=== PATIENT | male | born 1950 | race Caucasian/White ===

== ENCOUNTER 2021-07-13 20:43 | Observation (INO) | payer OTHER, MEDICARE ==
[~2021-07-13] VITALS: Ht 188 cm; Wt 113.4 kg
[2021-07-13 22:07] LABS: BASOPHILS ABSOLUTE AUTO 0.05 K/mm3 (0.00-0.23); BASOPHILS PERCENT AUTO 0 % (0-2); EOSINOPHILS ABSOLUTE AUTO 0.17 K/mm3 (0.00-0.68); EOSINOPHILS PERCENT AUTO 1 % (0-6); Hematocrit 45.5 % (37.0-53.0); IMMATURE GRAN ABSOLUTE AUTO 0.08 K/mm3 (0.00-0.10); IMMATURE GRAN PERCENT AUTO 1 % (0-1); LYMPHOCYTES ABSOLUTE AUTO 1.36 K/mm3 (0.84-5.20); LYMPHOCYTES PERCENT AUTO 10 % (21-46); MONOCYTES ABSOLUTE AUTO 0.87 K/mm3 (0.16-1.47); MONOCYTES PERCENT AUTO 6 % (4-13); Mean Corpuscular HGB 27.9 pg (26.0-34.0); Mean Corpuscular Volume 85 fL (80-100); Mean Platelet Volume 9.2 fL (9.1-12.4); NEUTROPHILS ABSOLUTE AUTO 11.77 K/mm3 (1.96-9.15); NEUTROPHILS PERCENT AUTO 82 % (41-73); Platelet Count 268 K/mm3 (150-400); RDW Coefficient Variation 11.9 % (11.7-14.2); Red Blood Cell Count 5.37 M/mm3 (4.30-5.90)
[2021-07-13 22:13] LABS: Source, Urine Clean Catch
[2021-07-13 22:15] LABS: Bilirubin, Urine Neg (Neg); Blood, Urine 3+ (Neg); Glucose Qualitative, Urine Neg (Neg); Ketones, Urine Neg (Neg); Leukocyte Esterase, Urine 1+ (Neg); Nitrite, Urine Neg (Neg); Protein, Urine Neg (Neg); Specific Gravity, Urine 1.025 (1.003-1.022); Urobilinogen, Urine NORM (Normal)
[2021-07-13 22:22] LABS: Alanine Aminotransfer (ALT/SGP 22 U/L (12-78); Albumin, Blood 3.4 g/dL (3.4-5.0); Albumin/Globulin Ratio 0.9 (0.8-1.8); Alk Phos 76 U/L (50-136); Anion Gap 5 mmol/L (6-16); Aspartate Aminotrans (AST/SGOT 11 U/L (12-37); Bilirubin, Total 0.4 mg/dL (0.1-1.0); Blood Urea Nitrogen 24 mg/dL (8-24); Bun/Creatinine Ratio 25.8 (12.0-20.0); CO2, Blood 26 mmol/L (21-32); Calcium, Blood 8.7 mg/dL (8.5-10.1); Chloride, Blood 106 mmol/L (98-108); Creatinine, Blood 0.93 mg/dL (0.60-1.20); Globulin, Blood 3.9 g/dL (2.2-4.0); Glomerular Filtration Rate >60 (60-); Glucose, Blood 134 mg/dL (70-99); Potassium, Blood 3.6 mmol/L (3.5-5.5); Sodium, Blood 137 mmol/L (136-145); Total Protein, Blood 7.3 g/dL (6.4-8.2)
[2021-07-13 22:31] LABS: Appearance, Urine Hazy (Clear); Color, Urine Yellow (P-Yellow)
[2021-07-13 22:32] LABS: Bacteria Rare /hpf; Mucus Light (0-Heavy); Red Blood Cells, Urine 0-2 /hpf (0-2); Squamous Epithelial Cells Not Seen /hpf (Few); Uric Acid Crystals Many /hpf; White Blood Cells, Urine 0-2 /hpf (0-5)
[2021-07-13] MEDS ORDERED: TAMSULOSIN HCL0.4 M1 PO (22:56)
--- NOTE | 2021-07-14 01:56 | NUR ---
ASSUMED CARE OF PATIENT AT APPROX 0100, PT IND AND AMBULATORY, VITAL SIGNS TAKEN. ADMISSION ASSESSMENT COMPLETED. CHANGED INTO GOWN. REPORTS NO PAIN AT THIS TIME. NO N/V. WILL CONTINUE TO MONITOR.
--- NOTE | 2021-07-14 04:24 | NUR ---
SHIFT SUMMARY SINCE ASSUMING CARE PATIENT HAS NOT REPORTED ANY PAIN, NAUSEA, OR VOMITING. PT HAS REMAINED NPO. VITAL SIGNS STABLE. IND IN THE ROOM. WILL CONTINUE TO MONITOR AND REPORT TO ONCOMING RN.
[2021-07-14 06:37] LABS: Influenza A, PCR NEGATIVE (NEGATIVE); Influenza B, PCR NEGATIVE (NEGATIVE); Resp Syncytial Virus, PCR NEGATIVE (NEGATIVE); SARS-Cov-2 (COVID-19) PCR, MMC NEGATIVE (NEGATIVE)
--- NOTE | 2021-07-14 10:12 | NUR ---
PT LEFT FOR DAY SURGERY AT APPROXIMATELY 0900. PT WAS PROVIDED WITH PRE-OP CLEANSING PRODUCTS PRIOR TO SURGERY.
--- NOTE | 2021-07-14 12:33 | NUR ---
PT ARRIVED BACK TO THE ROOM AT 1221. PT ALERT AND ORIENTED. HE REPORTS HIS PAIN IS TOLERABLE AT THIS TIME. NATHALIA DRAIN IN PLACE AND DRAINING SEROSANGUINOUS FLUID, WITH SOME SCANT DRAINAGE AT INSERTION SITE. LAP SITES X3, GAUZE DRESSING C/D/I.
--- NOTE | 2021-07-14 19:15 | NUR ---
SHIFT SUMMARY PT IS POD#[address] FROM [address]Y WITH DR. STOCK. PT DENIES NEED FOR PAIN MEDICATION. NATHALIA DRAIN IN PLACE, DRAINING SEROSANGUINOUS FLUID WITH FEW CLOTS. PT IS TOLERATING CLEAR LIQUIDS AND REPORTED PASSING FLATUS THIS EVENING. PT HAS AMBULATED IN THE [facility] POST OP. PT ABLE TO VOID SINCE SURGERY. REPORT GIVEN TO ISSAC VICK.
--- NOTE | 2021-07-15 04:16 | NUR ---
SHIFT SUMMARY A/0 X4- IND IN RM. POD1 LAP YEVGENIY WITH 3 INCISION SITES WITH GAUZE AND TAPE, C/D/I. NATHALIA DRAIN TO RLQ WITH MINIMAL AMOUNT OF SS DRAINAGE, GAUZE AND TAPE DRESSING, C/D/I. TOLERATING CLEAR LIQUIDS, NO N/V. REPORTS PASSING FLATUS. VOIDING WELL. VITAL SIGNS STABLE. WILL CONTINUE TO MONITOR AND REPORT TO ONCOMING RN.
--- NOTE | 2021-07-15 08:51 | NUR ---
STRAIGHT CATH STRAIGHT CATH NEEDED TO EMPTY BLADDER OF >820ML PER BLADDER SCAN RESULT. STRAIGHT CATH EMPTIED 1100ML. PT TOLERATED WELL. DR. STOCK AWARE. FLOMAX RESTARTED.
--- NOTE | 2021-07-15 08:53 | NUR ---
DR. STOCK ROUNDED ON PT. NATHALIA DRAIN REMOVED. DRESSINGS CHANGED.
[2021-07-15 17:06] LABS: Source, Urine Foley catheter
[2021-07-15 17:17] LABS: Appearance, Urine Clear (Clear); Bilirubin, Urine Neg (Neg); Blood, Urine 3+ (Neg); Glucose Qualitative, Urine Neg (Neg); Ketones, Urine Neg (Neg); Leukocyte Esterase, Urine Neg (Neg); Nitrite, Urine Neg (Neg); Protein, Urine Neg (Neg); Urobilinogen, Urine NORM (Normal); pH, Urine 6.5 (5.0-8.0)
[2021-07-15 17:25] LABS: Color, Urine Pale Yellow (P-Yellow)
[2021-07-15 17:49] LABS: White Blood Cells, Urine Rare /hpf (0-5)
[2021-07-15 17:50] LABS: Bacteria Mod /hpf; Squamous Epithelial Cells Not Seen /hpf (Few)
--- NOTE | 2021-07-15 18:42 | NUR ---
URINARY RETENTION BLADDER SCAN SHOWED 563ML IN HIS BLADDER, PT UNABLE TO VOID. DR. STOCK NOTIFIED. RIZVI CATH PLACED PT EDUCATED TO FOLLOW-UP WITH UROLOGY IN 1 WEEK.
--- NOTE | 2021-07-15 18:52 | NUR ---
DISCHARGE PT PROVIDED WITH WRITTEN AND VERBAL DISCHARGE INSTRUCTIONS; HE AND HIS SPOUSE REPORTED UNDERSTANDING. PT EDUCATED TO USE RIZVI OVERNIGHT BAG AND LEG BAG. SUPPLIES PRVOIDED. PT AMBULATED OUT WITHOUT ASSISTANCE. NATHALIA DRAIN REMOVED BY DR. STOCK EARLIER TODAY.
--- NOTE | 2021-07-16 10:46 | NUR ---
07/16/21 1046 Alana López VERIFICATIONS: EDIT CHART.
== END 2021-07-15 18:00 | disposition home or self-care (01) ==
LOC: ER 20:43 → SURS 20:44 → ER 07-14 00:35 → SURS 07-14 00:35
PROVIDERS: Physician Assistant; ADMIT Surgery
PROC: 0FT44ZZ Resection of Gallbladder, Percutaneous Endoscopic Approach (ICD-10-PCS; principal; 2021-07-14 09:15)
PROC: BF12YZZ Fluoroscopy of Gallbladder using Other Contrast (ICD-10-PCS; principal; 2021-07-14 09:15)
DX: K80.12 Calculus of gallbladder with acute and chronic cholecystitis without obstruction (principal); K80.00 Calculus of gallbladder with acute cholecystitis without obstruction; K42.0 Umbilical hernia with obstruction, without gangrene; R33.9 Retention of urine, unspecified; Z20.822 Contact with and (suspected) exposure to COVID-19; Z88.5 Allergy status to narcotic agent; Z85.46 Personal history of malignant neoplasm of prostate
CPT/HCPCS: 0241U; 36415; 71045; 76705; 80053; 81001; 83690; 84484; 85025; 87086; 88304; 93005; 93010; 96365; 96366; 96372; 96375; 96376; 99285-25; A9270; C1894; G0378; J0295; J1100; J1650; J1885; J2405; J2704; J2710; J3010; J7030; J7050

== ENCOUNTER 2022-09-14 11:50 | Emergency (ER) | payer SELFPAY ==
[~2022-09-14] VITALS: Ht 182.9 cm; Wt 99.8 kg
[~2022-09-14 11:50] MED LIST: TAMSULOSIN HCL0.4 M1 PO
[2022-09-14 11:57] VITALS: BP 168/100
== END 2022-09-14 13:38 | disposition home or self-care (01) ==
LOC: ER 11:50
DX: S61.411A Laceration without foreign body of right hand, initial encounter (principal); S50.811A Abrasion of right forearm, initial encounter; W22.8XXA Striking against or struck by other objects, initial encounter; Z88.5 Allergy status to narcotic agent; Z79.899 Other long term (current) drug therapy
CPT/HCPCS: 99282

== ENCOUNTER 2024-05-03 07:10 | Day surgery (SDC) | payer BC ==
[~2024-05-03] VITALS: Ht 188 cm; Wt 122.6 kg
[2024-05-03] MEDS ORDERED: NS 500 ML IV ONE (07:16)
[2024-05-03] MEDS ORDERED: CeFAZolin Sodium 2,000 MG VIAL ONE (07:33)
[2024-05-03] MEDS ORDERED: NS 1,000 ML IV ONE (07:53)
[2024-05-03] MEDS ORDERED: Lactated Ringer's 1,000 ML IV ONE (07:53)
[2024-05-03] MEDS ORDERED: CeFAZolin Sodium 3,000 MG VIAL ONE (07:57)
[2024-05-03] MEDS ORDERED: propofoL 20 ML IV ONE (08:07)
[2024-05-03] MEDS ORDERED: FentaNYL Citrate 50 MCG/ML 2 ML Injection ONE (08:08)
[2024-05-03] MEDS ORDERED: Dexamethasone Sod Phos 10 MG/ML 1ML VIAL ONE (08:28)
[2024-05-03] MEDS ORDERED: Ketorolac Tromethamine 30mg Vial ONE (08:28)
[2024-05-03] MEDS ORDERED: Ondansetron HCl 2 MG / ML 2ML Vial ONE (08:28)
[2024-05-03] MEDS ORDERED: Lidocaine HCl 2% 10 ML SDA ONE (08:29)
[2024-05-03] MEDS ORDERED: Lidocaine HCl 2% 10 ML SDA INJ ONE (08:33)
[2024-05-03 09:10] VITALS: BP 131/82
--- NOTE | 2024-05-03 09:41 | NUR ---
05/03/24 0903 Johnny Schmidt PT DENIES PAIN AND STATES READY FOR DISCHARGE. TOLERATING FOOD AND FLUIDS. SEE VSS FOR FURTHER INFO.
== END 2024-05-03 09:47 | disposition home or self-care (01) ==
LOC: ORSCSDS 07:10
PROVIDERS: Orthopaedic Surgery
PROC: 01N40ZZ Release Ulnar Nerve, Open Approach (ICD-10-PCS; principal; 2024-05-03 08:30)
DX: G56.21 Lesion of ulnar nerve, right upper limb (principal)
CPT/HCPCS: J0690; J1100; J1885; J2003; J2405; J2704; J3010; J7040